=== PATIENT | male | born 1975 | race Caucasian/White ===

== ENCOUNTER 2016-06-27 14:15 | Emergency (ER) | payer MEDICAID ==
[~2016-06-27] VITALS: Wt 90.0 kg
[2016-06-27] MEDS ORDERED: ONDANSETRON (ODT) 4 MG TAB ODT STA (14:49)
[2016-06-27] MEDS ORDERED: HYDROCODONE/APAP (10/325) TAB PO ONE (15:00)
[2016-06-27] MEDS ORDERED: HYDR-902 PO (15:46)
--- NOTE | 2016-06-27 15:59 | ERD ---
ER Documentation Chief Complaint Date/Time DATE: 06/27/16 TIME: 15:57 Chief Complaint R FOOT PAIN FROM SOMETHING DROPPING ON IT YESTERDAY. BRUISING NOTED. HPI Patient is a 40-year-old male with no medical problems who presents with right foot pain. He has right-sided foot pain and bruising since yesterday. Yesterday he was working on a she had an addition was propped up but slipped and fell onto his right foot. He rested on it overnight but it was swollen and bruised today. He tried ice. He tried ibuprofen as well. He does not currently have a primary doctor. Upon review of old medical records this is the patient's first visit to the emergency department. ROS All systems reviewed and are negative except as per history of present illness. Medications Home Meds Active Scripts Hydrocodone/Acetaminophen ([place] 10-325 Tablet) 1 Each Tablet, 1 TAB PO Q6H Y for PAIN, #12 TAB Prov:BETTE BLANDON MD 06/27/16 Allergies Allergies: Coded Allergies: Penicillins (Verified Allergy, 06/27/16) PMhx/Soc Medical and Surgical Hx: pt denies Medical Hx FmHx Family History: No diabetes Physical Exam Vitals Vital Signs Date Time Temp Pulse Resp B/P Pulse Ox O2 Delivery O2 Flow Rate FiO2 06/27/16 14:19 98.5 100 20 131/71 97 Physical Exam Const: Mild distress secondary to pain Head: Atraumatic Eyes: Normal Conjunctiva ENT: Normal External Ears, Nose and Mouth. Neck: Full range of motion..~ No meningismus. Resp: Clear to auscultation bilaterally Cardio: Regular rate and rhythm, no murmurs Abd: Soft, non tender, non distended. Normal bowel sounds Skin: Bruising to the right foot Back: No midline or flank tenderness Ext: Swelling and bruising to the right lateral foot with tenderness to palpation Neur: Awake and alert Psych: Normal Mood and Affect Results 24 hrs Current Medications Medications (Trade) Dose Ordered Sig/Mitch Route PRN Reason Start Time Stop Time Status Last Admin Dose Admin Acetaminophen/ Hydrocodone Bitart ([place] (10/325)) 1 tab ONCE ONCE PO 06/27/16 15:00 06/27/16 15:01 DC Ondansetron HCl (Zofran Odt) 4 mg ONCE STAT ODT 06/27/16 14:49 06/27/16 14:50 DC Procedures/MDM X-ray Foot 3V Interpreted by me: Bones: Fracture of the fifth metatarsal at the mid portion with mild displacement Joints: No dislocation Foreign body: None Splint Note Type: Posterior ankle splint Location: Right lower extremity Indication: Right fifth metatarsal fracture Splint Assessment: Neurovascularly intact post splint placement with good fit. Patient is a 40-year-old male who presents with right foot swelling and bruising. X-ray shows a right fifth metatarsal fracture. The patient had a splint and crutches given. The patient will be discharged home and can follow- up with Dr. Fischer from orthopedic surgery or the orthopedic surgeon of his choice within 3-4 days. The patient can return sooner for any worsening symptoms. Patient understands the plan and is okay for discharge at this time. Departure Diagnosis: Primary Impression: Foot fracture, right Encounter type: initial encounter Fracture type: closed Qualified Code: S92.901A - Foot fracture, right, closed, initial encounter Condition: Fair Patient Instructions: Fracture, Foot Referrals: JOSE FISCHER MD Additional Instructions: SPECIALIST: YOU HAVE A MEDICAL CONDITION WHICH REQUIRES YOU TO SEE A SPECIALIST WITHIN THE NEXT 1-2 DAYS. PLEASE FOLLOW UP WITH YOUR PRIMARY PHYSICIAN FOR REFFERAL.IF YOU DO NOT HAVE A PRIMARY CARE PHYSICIAN AND/OR YOU CAN NOT AFFORD TO SEE A PHYSICIAN THE FOLLOWING RESOURCES HAVE BEEN SUPPLIED TO YOU. IT IS YOUR RESPONSIBILITY TO BE SEEN BY THE SPECIALIST BETTE BLANDON MD Jun 27, 2016 15:59
[2016-06-27 16:23] VITALS: BP 127/70; PULSE 78; RESP 20; TEMP 98.2
--- NOTE | 2016-06-27 16:24 | RADRPT ---
PROCEDURE: Right XR Foot. CLINICAL INDICATION: Right foot pain. TECHNIQUE: AP lateral and oblique views of the right foot was obtained. The images were reviewed on a PACS workstation. COMPARISON: No. FINDINGS: There is a oblique fracture extending from the proximal metaphysis to the distal third of the diaphy sis of the right fifth metatarsal bone with adjacent soft tissue swelling. The other bony elements are intact and anatomically aligned. There is a mild hallux valgus deformit y of the right great toe. IMPRESSION: 1. Oblique fracture extending from the proximal metaphysis to the distal third of the right fifth m etatarsal bone with soft tissue swelling. 2. Hallux valgus deformity of the right great toe with narrowing of the right first metatarsal phal angeal joint. RPTAT:AAJJ Physician Melida Date Time Electronically viewed and signed by Harmeet Mehta Physician on 06/27/2016 16:24 REINALDO/
== END 2016-06-27 16:25 | disposition home or self-care (01) ==
LOC: FTE 14:15
DX: S92.351A Displaced fracture of fifth metatarsal bone, right foot, initial encounter for closed fracture (principal); W01.0XXA Fall on same level from slipping, tripping and stumbling without subsequent striking against object, initial encounter; Y92.9 Unspecified place or not applicable
CPT/HCPCS: 29515; 73630; Z7502; Z7610